=== PATIENT | male | born 1985 | race Caucasian/White ===

== ENCOUNTER 2021-03-05 16:02 | Inpatient (IN) | payer OTHER ==
[~2021-03-05] VITALS: Ht 172.7 cm; Wt 95.8 kg
[2021-03-05 16:51] LABS: BASOPHIL 0.3 % (0-2); EOSINOPHIL 0.2 % (0-5); HCT 44.9 % (42.0-52.0); HGB 15.2 g/dl (13.2-18.0); LYMPHOCYTE 6.4 % (15-48); MCHC 33.9 g/dL (32.0-36.0); MCV 88.7 fL (78.0-100.0); MONOCYTE 7.7 % (0-12); MPV 11.2 fL (6.0-9.5); NEUTROPHIL 85.1 % (41-80); NRBC 0; PLT 181 K/uL (150-400); RBC 5.06 M/uL (4.70-6.00); RDW 12.2 % (11.5-14.0); WBC 10.6 K/uL (4.0-10.5)
[2021-03-05 17:28] LABS: ALBUMIN 3.6 g/dL (3.4-5.0); BILIRUBIN - TOTAL 0.6 mg/dL (0.2-1.0); BUN/CREAT RATIO (CALC) 11.3 RATIO; CREATININE 1.15 mg/dL (0.67-1.17); GLOBULIN (CALCULATION) 4.5 g/dL; POTASSIUM 4.2 mmol/L (3.5-5.1); TOTAL PROTEIN 8.1 g/dL (6.4-8.2)
[2021-03-06 04:40] LABS: BASOPHIL 0.3 % (0-2); HCT 38.3 % (42.0-52.0); HGB 13.1 g/dl (13.2-18.0); LYMPHOCYTE 18.8 % (15-48); MCH 30.7 pg (25.0-31.0); MCHC 34.2 g/dL (32.0-36.0); MCV 89.7 fL (78.0-100.0); MONOCYTE 12.4 % (0-12); MPV 11.7 fL (6.0-9.5); NEUTROPHIL 67.3 % (41-80); NRBC 0; PLT 157 K/uL (150-400); RBC 4.27 M/uL (4.70-6.00); RDW 12.2 % (11.5-14.0); WBC 9.5 K/uL (4.0-10.5)
[2021-03-06 04:55] LABS: INR 1.56 (0.9-1.2); PROTHROMBIN TIME 17.7 SECONDS (11.4-13.6)
[2021-03-06 04:56] LABS: PTT 39.1 SECONDS (22.2-34.7)
[2021-03-06 05:02] LABS: ALBUMIN 2.6 g/dL (3.4-5.0); BILIRUBIN - TOTAL 0.7 mg/dL (0.2-1.0); BUN/CREAT RATIO (CALC) 10.3 RATIO; CREATININE 0.97 mg/dL (0.67-1.17); GLOBULIN (CALCULATION) 3.8 g/dL; POTASSIUM 3.9 mmol/L (3.5-5.1); TOTAL PROTEIN 6.4 g/dL (6.4-8.2)
[2021-03-06] MEDS ORDERED: IBUPROFEN600 MG PO (12:42)
[2021-03-06] MEDS ORDERED: ELIQUIS5 MG PO (12:42)
[2021-03-06] MEDS ORDERED: NORCO 5-325 TA1 EACH PO (12:42)
[2021-03-06] MEDS ORDERED: SALONPAS1 EACH TOP (12:42)
== END 2021-03-06 14:08 | disposition home or self-care (01) | DRG 176 ==
LOC: FER 16:02 → FICU 19:51
PROVIDERS: Nurse Practitioner; Nurse Practitioner Family; ADMIT Internal Medicine
DX: I26.99 Other pulmonary embolism without acute cor pulmonale (principal); R07.81 Pleurodynia; F17.210 Nicotine dependence, cigarettes, uncomplicated; Z20.822 Contact with and (suspected) exposure to COVID-19; Z86.16 Personal history of COVID-19
CPT/HCPCS: 36415; 71045; 71275; 80053; 83605; 85025; 85379; 85610; 85730; 87040; 94010; J1644; J1885; J7030; Q9967; U0002

== ENCOUNTER 2022-02-02 20:59 | Emergency (ER) | payer OTHER ==
[~2022-02-02 20:59] MED LIST: ELIQUIS5 MG PO; IBUPROFEN600 MG PO; NORCO 5-325 TA1 EACH PO; SALONPAS1 EACH TOP
[2022-02-02] MEDS ORDERED: CYCLOBENZAPRINE10 MG PO (21:36)
== END 2022-02-02 21:42 | disposition home or self-care (01) ==
LOC: FER 20:59
DX: G89.29 Other chronic pain (principal); M54.50 Low back pain, unspecified
CPT/HCPCS: 99283